=== PATIENT | male | born 1995 ===

== ENCOUNTER 2019-12-05 22:38 | Outpatient (REF) | payer MEDICAID, SELFPAY ==
[2019-12-05 22:50] LABS: HCT 40.9 % (40.0-50.0); HGB 13.4 g/dL (13.5-17.5); MCH 29.9 pg (27.0-33.0); MCHC 32.8 % (32.0-36.0); MCV 91.3 fL (80-95); MPV 9.9 fL (8.0-11.0); Platelet Count 217 10^3/uL (130-400); RBC 4.48 10^6/uL (4.36-5.78); RDW 13.4 % (11.8-14.1); RDW-SD 45.2 fL; WBC 6.16 10^3/uL (4.4-10.8)
[2019-12-05 22:59] LABS: Iron 71 ug/dL (65-175)
[2019-12-05 23:25] LABS: Ferritin 35 ng/mL (26-388); Vitamin B12 386 pg/mL (193-986)
== END 2019-12-05 22:58 ==
LOC: NCHCN 22:38
PROVIDERS: PCP Family Medicine
DX: Z86.2 Personal history of diseases of the blood and blood-forming organs and certain disorders involving the immune mechanism (principal)
CPT/HCPCS: 85027; 82607; 82728; 83540

== ENCOUNTER 2020-08-29 17:25 | Outpatient (REF) | payer MEDICAID, SELFPAY ==
[2020-08-29 20:57] LABS: Ferritin 31 ng/mL (26-388)
== END 2020-08-29 17:26 | disposition home or self-care (01) ==
LOC: NCHCN 17:25
PROVIDERS: PCP Family Medicine; Visit Provider Family Medicine
DX: Z86.2 Personal history of diseases of the blood and blood-forming organs and certain disorders involving the immune mechanism (principal)
CPT/HCPCS: 82728; 85014; 85018

== ENCOUNTER 2020-09-06 16:03 | Outpatient (REF) | payer MEDICAID, SELFPAY ==
[2020-09-06 20:50] LABS: HCT 46.1 % (40.0-50.0)
== END 2020-09-06 16:04 | disposition home or self-care (01) ==
LOC: NCHCN 16:03
PROVIDERS: PCP Family Medicine; Visit Provider Family Medicine
DX: Z86.2 Personal history of diseases of the blood and blood-forming organs and certain disorders involving the immune mechanism (principal)
CPT/HCPCS: 85014; 85018

== ENCOUNTER 2020-12-20 21:52 | Outpatient (REF) | payer MEDICAID, SELFPAY ==
[2020-12-20 20:35] LABS: Abs Immature Grans 0.02 10^3/uL (0.0-0.06); Absolute Basophil Count 0.01 10^3/uL (0.0-0.2); Absolute Eosinophil Count 0.28 10^3/uL (0.0-0.7); Absolute Lymphocyte Count 1.66 10^3/uL (1.2-3.4); Absolute Monocyte Count 0.55 10^3/uL (0.1-0.8); Absolute Neutrophil Count 3.65 10^3/uL (1.2-6.7); Basophils % 0.2; Eosinophils % 4.5; HCT 43.3 % (40.0-50.0); HGB 14.2 g/dL (13.5-17.5); Immature Grans % 0.3; Lymphocytes % 26.9; MCH 29.8 pg (27.0-33.0); MCHC 32.8 % (32.0-36.0); MPV 9.7 fL (8.0-11.0); Monocytes % 8.9; Neutrophils % 59.2; Nucleated RBC 0 %; Platelet Count 258 10^3/uL (130-400); RBC 4.76 10^6/uL (4.36-5.78); RDW-SD 43.5 fL; WBC 6.17 10^3/uL (4.4-10.8)
[2020-12-20 21:34] LABS: BUN 19 mg/dL (7-18); CREATININE 0.9 mg/dL (0.70-1.30); Calcium 8.9 mg/dL (8.5-10.1); Glucose 86 mg/dL (74-106); Sodium 143 mmol/L (136-145)
[2020-12-20 21:35] LABS: Anion Gap 9.1 mmol/L (3-11); CO2 28.9 mmol/L (21.0-32.0); Chloride 105 mmol/L (98-107); Ferritin 49 ng/mL (26-388); Potassium 3.9 mmol/L (3.5-5.1)
== END 2020-12-20 21:53 | disposition home or self-care (01) ==
LOC: NCHCN 21:52
PROVIDERS: PCP Family Medicine; Visit Provider Family Medicine
DX: G43.909 Migraine, unspecified, not intractable, without status migrainosus (principal); Z86.2 Personal history of diseases of the blood and blood-forming organs and certain disorders involving the immune mechanism
CPT/HCPCS: 80048; 82728; 85025